=== PATIENT | female | born 1985 | race Caucasian/White ===

== ENCOUNTER 2018-02-09 10:43 | Inpatient (IN) | payer OTHER, SELFPAY ==
[2018-02-09 12:00] LABS: Troponin I 0.611 ng/mL (< 0.028)
[2018-02-09] MEDS ORDERED: ISOVUE-370 76%-LOCM 1 ML ONE (13:31)
[2018-02-09 13:38] LABS: Bilirubin Small (Negative); Blood, Urine Large (Negative); Clarity CLOUDY (Clear); Glucose, Urine (Dipstick) Negative (Negative); Leukocyte Small (Negative); Nitrite Positive (Negative); Protein, Urine (Dipstick) 100 mg/dL (Neg-Trace); Specific Gravity, Urine 1.036 (1.002-1.036)
[2018-02-09 13:40] LABS: Bacteria/HPF 4+ HPF (None Seen); Pregnancy Test - Urine (BHCG) Negative (Negative); Pregu Control Background? CLEAR/WHITE (CLR/WHITE); Pregu Control Bar Appear? YES (CONTROL BAR); Specific Gravity 1.036 (1.002-1.036)
[2018-02-09 13:42] LABS: Pathc Cast-AUWi Flag 3.25 (0-2.49); Yeast-AUWi Flag 26.2 (0-25.0)
[2018-02-09 13:49] LABS: Amphetamine Detected (NotDetected); Barbiturates Screen Not Detected (NotDetected); Benzodiazepine Screen Detected (NotDetected); Cocaine Metabolite Screen Not Detected (NotDetected); Medtox Control Line Valid? VALID (VALID); Medtox Reader # READER 4; Methadone Not Detected (NotDetected); Methamphetamine Detected (NotDetected); Opiate Screen Not Detected (NotDetected); Oxycodone Screen Not Detected (NotDetected); Phencyclidine (PCP) Not Detected (NotDetected); THC/Cannabinoid Screen Not Detected (NotDetected); Tricyclic Screen Not Detected (NotDetected)
[2018-02-09 13:51] LABS: Crystals/HPF 1+ CA OXALATE HPF (Negative); Hyaline Casts/LPF 0-3 HYALINE CAST LPF (0-3 Hyaline); Other Casts/LPF None Seen LPF (0-3 Hyaline)
[2018-02-09 13:52] LABS: Yeast-All Forms None Seen HPF (None Seen)
--- NOTE | 2018-02-09 14:29 | CT ---
CT ANGIOGRAM OF CHEST: Date: 02/09/18 HISTORY: Chest pain. COMPARISON: None. TECHNIQUE: CT angiogram of the chest is performed in the axial plane. Three-dimensional reformatted images are s ubmitted for interpretation. FINDINGS: Trachea and central bronchi are patent. No consolidation or masses. No pleural effusion. No pneumotho rax. No mediastinal mass, lymphadenopathy, or hematoma. Heart size is normal. No pericardial fluid. Visual ized aorta is grossly unremarkable. There is adequate contrast opacification of the pulmonary arterial system to the level of the segment al arteries. No filling defect to suggest thromboembolism. There is hepatic steatosis. Upper solid organs are unremarkable. There is some reflux of contrast int o the inferior vena cava. Correlate for right heart failure. No lytic or blastic lesions in the osseous structures. IMPRESSION: No evidence of pulmonary artery embolism to the level of the segmental arteries. POS: [facility] [place]
[2018-02-09 15:46] LABS: Critical Call Chem Troponin I RESULT DECREASING; Troponin I 0.531 ng/mL (< 0.028)
--- NOTE | 2018-02-09 16:13 | PDOC.FPRHP ---
- History of Present Illness Chief Complaint: chest pain History of Present Illness: 32 yo F with no prior cardiac history presents to ED with chest pain. Was a transfer from [facility] ED for elevated cardiac enzymes. Described as left substernal, sharp and squeezing, 9/10, better with rest, worse with exertion. Accompanied by SOB, nausea. Of note, for the past two week she has been experiencing this same chest pain, but less severe, triggered when shes smokes. 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 Patient also endorses episodes where she gets really warm, accompanied by palpitations and headaches that started this week. Mom had thyroid problems. ED Course: given ativan and haldol for anxiety - Allergies/Adverse Reactions Allergies Allergy/AdvReac Type Severity Reaction Status Date / Time Penicillins Allergy Verified 02/09/18 16:27 Sulfa (Sulfonamide Allergy Verified 02/09/18 16:27 Antibiotics) - Home Medications Medication Instructions Recorded Confirmed Type No Known 02/09/18 02/09/18 History - History PMHx: asthma, anxiety PSHx: C section FHx:Dad of MS at 42, DM, HTN Social: 1/2 ppd x5 years, socially drinks, denies drug use, former h/o of opiate abuse (clean 3 years). 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 denies : congestion Cardiovascular: reports: chest pain, palpitation. denies: edema, orthopnea Gastrointestinal: denies: nausea, vomiting, diarrhea, constipation, abdominal pain Genitourinary: denies: incontinence, dysuria Skin: denies: rashes, lesions, jaundice, itching Musculoskeletal: denies: pain, tenderness, stiffness, swelling Neurological: denies: numbness, syncope, seizure Psychological: reports: anxiety. denies: depression - Vital signs BP: [101/64] HR: [109] RR: [16] Tmax: [98.1] Pox: [98]% on [RA] Wt: [94] - Physical Exam Constitutional: NAD, awake, alert and oriented HEENT: normocephalic and atraumatic, PERRLA, EOMI, no scleral icterus Neck: supple, no thyromegaly Chest: no-tender to palpation, no lesions Heart: normal S1/S2 -Heart: tachycardic -Lungs: diffuse inspiratory and expiratory wheezes Abdomen: soft, non-tender Musculoskeletal: normal structure, ROM grossly normal Neurological: no focal deficit, CN II-XII intact Skin: good turgor -Skin: lower leg lesions, mild, superificial skin excoriation with no drainage or erythema Heme/Lymphatic: no unusual bruising or bleeding, no purpura Psychiatric: normal mood and affect FMR H&P: Results - Labs Lab results: Urine Ketones 40 mg/dL (Negative) H 02/09/18 13:16 Urine Blood Large (Negative) H 02/09/18 13:16 Urine Nitrite Positive (Negative) H 02/09/18 13:16 Ur Leukocyte Esterase Small (Negative) H 02/09/18 13:16 Urine RBC 7-10 HPF (0-3) H 02/09/18 13:16 Urine WBC 7-10 HPF (0-3) H 02/09/18 13:16 Ur Squamous Epith Cells 4-6 HPF (0-3) H 02/09/18 13:16 Urine Bacteria 4+ HPF (None Seen) H 02/09/18 13:16 - EKG Interpretation EKG: ST elevation in V2, t wave inversions - Radiology Interpretation CT scan - chest Status: report reviewed by me Additional comment: negative for PE FMR H&P: A/P - Problem List (1) NSTEMI (non-ST elevated myocardial infarction) Current Visit: Yes Status: Acute Code(s): I21.4 - NON-ST ELEVATION (NSTEMI) MYOCARDIAL INFARCTION (2) Rhabdomyolysis Current Visit: Yes Status: Acute Code(s): M62.82 - RHABDOMYOLYSIS (3) Methamphetamine abuse Current Visit: Yes Status: Acute Code(s): F15.10 - OTHER STIMULANT ABUSE, UNCOMPLICATED (4) UTI (urinary tract infection) Current Visit: Yes Status: Acute - Plan 32 yo F with h/o of former multi-drug abuse with NSTEMI, Rhabdomyolysis, and UTI. NSTEMI, ACS r/o -likely 2/2 to methamphetamine use -0.7 -> 0.6 -continue to trend trops -cardiology (Dr. Velez) consulted, recommended NST in am Rhabomyolysis -CK >19,000 -Bolus x1, will continue maintenance fluids at 250cc/hr -Trend CK and renal function UTI, uncomplicated -Ciprofloxacin 250mg BID for 5 days, first dose this pm -pending Ucx, tailor abx according to S/S Amphetamine abuse -positive UDS -MD aware Episodic hot flashes, palpitations, blurry vision -will r/o thyroid disease with TSH, fT3, fT4 Dispo: Continue management for NSTEMI, ACS r/o, rhabdo, UTI. Discussed with Dr. Cruz FMR H&P: Upper Level - Plan Date/Time: 02/09/18 547 I, [], have evaluated this patient and agree with findings/plan as outlined by financial intern resident. Pertinent changes/additions are listed here. Attending Addendum - Attending Addendum Date/Time: 02/09/18 4833 I personally evaluated the patient and discussed the management with Dr. Yan/ Sapna. I agree with the History, Examination, Assessment and Plan documented above with any addition or exceptions noted below. Patient here with 2 week history of chest pain that she reports has gotten worse over the last few days associated with nausea, headache, and diaphoresis. Patient denies alleviating or exacerbating factors. Regards pain as pressure and stabbing in nature. On exam, there are no major abnormalities and vitals are currently stable. Labs at outside ER showed elevation in CKMB and Troponin and so she was transferred here. UDS positive for methamphetamines and benzos[place] [address] and her UA is grossly abnormal. Patient reports stable and somewhat improved pain at this time. Patient will be admitted to telemetry for NSTEMI. Administer therepeutic lovenox and obtain cardiology consult. Further recs per cardiology. Counselling regarding drug use. She will be started on high rate IVF for possible rhabdomyolysis and trend CK. Troponins are currently downtrending. Trend renal labs as needed. Anticipate this is likely all secondary to illicit drug use.
[2018-02-09] MEDS ORDERED: Nitroglycerin 0.4 MG TAB (25 Tab Bottle) PO PRN (16:23)
[2018-02-09] MEDS ORDERED: Ondansetron ODT 4 MG TAB PO PRN (16:23)
[2018-02-09] MEDS ORDERED: Acetaminophen 325 MG TAB PO PRN (16:23)
[2018-02-09] MEDS ORDERED: Enoxaparin Sodium 40 MG/0.4 ML SYRINGE SC SCH (16:23)
[2018-02-09] MEDS ORDERED: Carvedilol 3.125 MG TAB PO SCH (17:00)
[2018-02-09 17:30] LABS: Free T4 (Free Thyroxine) 1.41 ng/dL (0.70-1.48); Thyroid Stimulating Hormone 3.3459 uIU/mL (0.35-4.94)
[2018-02-09 17:51] VITALS: BMI 32.7
[2018-02-09] MEDS ORDERED: Cipro 250 MG TAB PO SCH ×2 (18:00→20:00)
[2018-02-09] MEDS ORDERED: Lactated Ringer's 1,000 ML IV SCH (18:00)
[2018-02-09 19:08] LABS: Critical Call Chem Troponin I RESULT DECREASING; Troponin I 0.455 ng/mL (< 0.028)
[2018-02-09] MEDS: Lactated Ringer's 1,000 ML IV SCH (19:35)
[2018-02-09] MEDS: Cipro 250 MG TAB PO SCH (21:14)
[2018-02-09] MEDS: Nitroglycerin 2% Ointment 1 INCH/1 GM Packet TOP SCH (21:14)
[2018-02-09] MEDS: Enoxaparin Sodium 120 MG/0.8 ML SYRINGE SC SCH (21:14)
[2018-02-09] MEDS: traMADol HCl 50 MG TAB PO PRN (21:14)
[2018-02-09 21:16] LABS: Critical Call Chem Troponin I RESULT DECREASING; Troponin I 0.385 ng/mL (< 0.028)
[2018-02-10] MEDS: Lactated Ringer's 1,000 ML IV SCH ×7 (00:18→23:14)
--- NOTE | 2018-02-10 05:07 | PDOC.FM ---
- Subjective Subjective: Pt feeling well this AM, continued mild constant cp at rest, pt reports pain is exacerbated by pushing on chest. no SOB. no other complaints. ROS: no fevers/chills, cp no palpitations, no sob no cough, no nausea/vomiting - Objective MAR Reviewed: Yes Vital Signs & Weight: Vital Signs (12 hours) Temp Pulse Resp BP Pulse Ox 02/10/18 00:00 98.2 F 114 H 20 92/52 L 94 L 02/09/18 19:55 97.6 F 109 H 18 Weight Weight 94.801 kg Result Diagrams: 02/10/18 04:26 02/10/18 04:26 <Rene Addison - Last Filed: 02/10/18 07:38> - Objective Vital Signs & Weight: Vital Signs (12 hours) Temp Pulse Resp BP Pulse Ox 02/10/18 07:38 98.3 F 121 H 12 128/81 92 L 02/10/18 04:00 97.7 F 108 H 17 108/60 93 L 02/10/18 00:00 98.2 F 114 H 20 92/52 L 94 L Weight Weight 96.887 kg I&O: 02/09/18 02/10/18 02/11/18 06:59 06:59 06:59 Intake Total 2600 Output Total 200 Balance 2400 Result Diagrams: 02/10/18 04:26 02/10/18 04:26 <Royce Cruz - Last Filed: 02/10/18 10:46> Phys Exam - Physical Examination Constitutional: NAD HEENT: moist MMs, sclera anicteric Respiratory: no wheezing, clear to auscultation bilateral Cardiovascular: no significant murmur tachycardic, regular rhythm cp reproducible on palpation of L anterior chest wall. Gastrointestinal: soft, non-tender Musculoskeletal: no edema, pulses present Neurological: moves all 4 limbs Psychiatric: normal affect Skin: no rash, normal turgor <Rene Addison - Last Filed: 02/10/18 07:38> Dx/Plan (1) NSTEMI (non-ST elevated myocardial infarction) Code(s): I21.4 - NON-ST ELEVATION (NSTEMI) MYOCARDIAL INFARCTION Status: Acute (2) Rhabdomyolysis Code(s): M62.82 - RHABDOMYOLYSIS Status: Acute (3) Methamphetamine abuse Code(s): F15.10 - OTHER STIMULANT ABUSE, UNCOMPLICATED Status: Acute (4) UTI (urinary tract infection) Status: Acute - Plan Plan: 32 yo F with h/o of former multi-drug abuse with NSTEMI, Rhabdomyolysis, and UTI. NSTEMI, ACS r/o A- likely 2/2 to methamphetamine use. troponins 0.7 -> 0.6 -> 0.385 P- stress test this AM per cardiology consult (Dr. Velez) recs Rhabomyolysis A- CK 11,000 down from 19,000. Bolus x1 P- will continue maintenance fluids at 250cc/hr - trend CK and renal function UTI, uncomplicated -Ciprofloxacin 250mg BID for 5 days, started 02/09 -pending Ucx, tailor abx according to S/S Amphetamine abuse -positive UDS -MD aware Episodic hot flashes, palpitations, blurry vision -TSH normal, likely due to drug abuse Dispo: Continue management for NSTEMI, ACS r/o, rhabdo, UTI. <Rene Addison - Last Filed: 02/10/18 07:38> Attending Addendum - Attending Addendum Date/Time: 02/10/18 1044 I personally evaluated the patient and discussed the management with Dr. Addison. I agree with the History, Examination, Assessment and Plan documented above with any addition or exceptions noted below. Patient feeling improved. Stress testing and th. lovenox per Cardiology. CK downtrending and continue aggressive hydration and recheck tomorrow. Will check another UA to evaluate for myoglobinuria. <Royce Cruz - Last Filed: 02/10/18 10:46>
[2018-02-10 05:16] LABS: #Basophils 0.1 thou/uL (0.0-0.2); #Eosinphils 0.3 thou/uL (0.0-0.7); #Lymphocytes 2.1 thou/uL (1.20-3.40); #Monocytes 0.6 thou/uL (0.11-0.59); #Neutrophils 5.8 thou/uL (1.40-6.50); %Basophils 0.8 % (0.0-1.0); %Eosinophils 3.7 % (0.0-10.0); %Lymphocytes 23.3 % (21.0-51.0); %Monocytes 6.2 % (0.0-10.0); %Neutrophils 65.8 % (42.0-75.0); Hemoglobin 13.9 g/dL (12.0-16.0); Mean Corpuscular HGB CONC 35.7 g/dL (32.0-36.0); Mean Corpuscular Hemoglobin 36.2 pg (27.0-31.0); Mean Platelet Volume 8.9 fL (7.4-10.4); Platelet Count 199 thou/uL (130-400); RBC Distribution Width 14.1 % (11.5-14.5); Red Blood Cell (RBC) Count 3.85 mill/uL (4.20-5.40); White Blood Cell (WBC) Count 8.8 thou/uL (4.8-10.8)
[2018-02-10 05:28] LABS: Cardiac Risk 3.4 (Less than 4.5)
[2018-02-10 05:37] LABS: ALT (SGPT) 155 U/L (8-55); AST (SGOT) 244 U/L (5-34); Albumin 3.1 g/dL (3.5-5.0); Alkaline Phosphatase 82 U/L (40-150); Anion Gap 15 mmol/L (10-20); BUN (Urea Nitrogen) 13 mg/dL (7.0-18.7); Calc. Creatinine Clearance 171 mL/min (70-130); Calcium 8.5 mg/dL (7.8-10.44); Carbon Dioxide 21 mmol/L (22-29); Chloride 104 mmol/L (98-107); Estimated GFR-MDRD Greater than 90; Globulin 2.4 g/dL (2.4-3.5); Glucose 90 mg/dL (70-105); Potassium 3.3 mmol/L (3.5-5.1); Protein, Total 5.5 g/dL (6.0-8.3); Sodium 137 mmol/L (136-145)
[2018-02-10] MEDS: Cipro 250 MG TAB PO SCH ×2 (05:53→21:07)
[2018-02-10] MEDS: Nitroglycerin 2% Ointment 1 INCH/1 GM Packet TOP SCH ×3 (05:56→21:08)
[2018-02-10 06:03] LABS: CK (CPK) 11325 U/L (29-168)
[2018-02-10] MEDS: traMADol HCl 50 MG TAB PO PRN ×3 (10:02→23:43)
[2018-02-10] MEDS: Aspirin 325 MG TAB PO SCH (10:03)
[2018-02-10] MEDS: Enoxaparin Sodium 120 MG/0.8 ML SYRINGE SC SCH ×2 (10:03→21:07)
[2018-02-10 12:52] LABS: Bilirubin Moderate (Negative); Blood, Urine Negative (Negative); Clarity TURBID (Clear); Glucose, Urine (Dipstick) Negative (Negative); Leukocyte Moderate (Negative); Nitrite Positive (Negative); Protein, Urine (Dipstick) 30 mg/dL (Neg-Trace); Specific Gravity, Urine 1.035 (1.002-1.036)
[2018-02-10 12:58] LABS: Bacteria/HPF 1+ HPF (None Seen)
[2018-02-10 13:04] LABS: Pathc Cast-AUWi Flag 3.05 (0-2.49)
[2018-02-10 13:19] LABS: Crystals/HPF 1+ TRIPLE PHOS HPF (Negative); Hyaline Casts/LPF 0-3 HYALINE CAST LPF (0-3 Hyaline); Other Casts/LPF None Seen LPF (0-3 Hyaline); RBC/HPF 0-3 HPF (0-3)
[2018-02-10] MEDS ORDERED: Potassium Chloride 20 MEQ TAB PO SCH (14:15)
--- NOTE | 2018-02-10 15:11 | CON ---
DATE OF CONSULTATION: 02/10/2018 HISTORY: Annie Ren is a 32-year-old white female, who went to the emergency room in [place] for chest discomfort and was found to have abnormal cardiac enzymes and transferred here for further evaluation. She states that she has had a discomfort on the left side of her chest for the last 2 weeks. The pain has been continuous and has never resolved. She describes the pain as pressure, tightness, burning, and sharp pain. Pain is worse if she coughs or takes in a deep breath. She denies any trauma or falls. 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 She denies any muscle trauma. PAST MEDICAL HISTORY: No history of hypertension, diabetes, hypercholesterolemia. She has a history of anxiety as well as history of opioid addiction, which she states she has been off for 3 years. MEDICATIONS: None. ALLERGIES: PENICILLIN and SULFA. SOCIAL HISTORY: She smokes [id number] per day. She occasionally drinks alcohol. She denies any drug use, but urine drug screen is positive. FAMILY HISTORY: Father of myocardial infarction at age 42. REVIEW OF SYSTEMS: A 12-point review of systems, otherwise, unremarkable. PHYSICAL EXAMINATION: VITAL SIGNS: Blood pressure 108/60, pulse of 108. HEENT: PERRL. NECK: Supple. LUNGS: Reveals occasional expiratory wheezing. CARDIAC EXAMINATION: S1 and S2 are normal, without any S3, S4, or murmurs. Carotid upstroke is normal without bruits. ABDOMEN: Normal bowel sounds, without tenderness or organomegaly. EXTREMITIES: Reveal no clubbing, cyanosis, or edema. NEUROLOGIC: Grossly intact. SKIN: Warm and dry. MUSCULOSKELETAL EXAMINATION: Revealed exquisite left-sided chest wall pain to palpation that reproduces her symptoms. LABORATORY DATA: EKG reveals sinus tachycardia with poor R-wave progression in V1-V2, nonspecific T-wave abnormality. Hemoglobin 13.9, hematocrit 39.1, white count 8800, platelet count 199,000. She has high RBC indices. Sodium 137, potassium 3.3, chloride 104, carbon dioxide 21, BUN 13, creatinine 0.70, AST 244 , ALT 155. CK 19,888, CK-MB 29. Troponin I is up to 0.455 and 0.531. TSH and T4 are normal. Free T3 is elevated at 3.75, which is just over the normal range. Urine drug screen revealed amphetamines, methamphetamines, and benzodiazepines. IMPRESSION: 1. Chest wall pain, continuous for 2 weeks with palpable tenderness, pleuritic pain. 2. Rhabdomyolysis of unknown etiology. She does work in a very hot environment. She denies any trauma or falls. 3. Smoker. 4. Obesity. 5. Positive urine drug screen for methamphetamines, amphetamines, and benzodiazepines. She apparently has history of opioid addiction, states she has not used that for 3 years 6. Elevated Troponin. PLAN: Ms. Ren's current chest discomfort is chest wall pain and does not appear to be cardiac in nature. She has evidence of rhabdomyolysis and I feel that is why she has slight abnormality in her troponin I. She will undergo Lexiscan Cardiolite testing to rule out significant ischemic disease. Also, echocardiogram will be performed to assess left ventricular function. Further evaluation should be performed for her rhabdomyolysis, as to the etiology. SID
[2018-02-10] MEDS ORDERED: Nitrofurantoin Monohyd/M-Cryst 100 MG CAP PO SCH (21:00)
[2018-02-11 04:33] LABS: Actual Bicarbonate (HCO3a) 20.2 mEq/L (22-28); Base Excess (BEa) -2.3 mEq/L (-2.0 to +3.0); CO2 Tension 28.9 mmHg (35.0-45.0); O2 Tension (PaO2) 62.2 mmHg (80.0-100.0); pH, Arterial 7.46 (7.35-7.45)
[2018-02-11 04:34] LABS: ALV-art Gradient 258.175 (0-20); Analyzer IN Cardio OR; Calcium, Ionized 1.1 mmol/L (1.12-1.30); Carboxyhemoglobin (COHb) 0.3 gm% (0.0-3.0); Puncture Site RRA
[2018-02-11 05:32] LABS: ALT (SGPT) 218 U/L (8-55); AST (SGOT) 259 U/L (5-34); Albumin 3.2 g/dL (3.5-5.0); Alkaline Phosphatase 102 U/L (40-150); Anion Gap 12 mmol/L (10-20); BUN (Urea Nitrogen) 7 mg/dL (7.0-18.7); Bilirubin, Total 1.1 mg/dL (0.2-1.2); Calc. Creatinine Clearance 172 mL/min (70-130); Calcium 8.6 mg/dL (7.8-10.44); Carbon Dioxide 24 mmol/L (22-29); Chloride 102 mmol/L (98-107); Estimated GFR-MDRD Greater than 90; Globulin 2.9 g/dL (2.4-3.5); Glucose 98 mg/dL (70-105); Potassium 4.2 mmol/L (3.5-5.1); Protein, Total 6.1 g/dL (6.0-8.3); Sodium 134 mmol/L (136-145)
[2018-02-11] MEDS: Nitroglycerin 2% Ointment 1 INCH/1 GM Packet TOP SCH ×3 (05:50→22:51)
[2018-02-11] MEDS: Lactated Ringer's 1,000 ML IV SCH (05:52)
[2018-02-11 06:12] LABS: Band 1 % (5-11); Eosinophils 1 % (0-10); Lymphocytes 37 % (21-51); MDiff Complete? YES; Macrocytosis SLIGHT = 6-15 cells (100X) (0-5/hpf); Mean Corpuscular HGB CONC 35.6 g/dL (32.0-36.0); Mean Corpuscular Hemoglobin 36.8 pg (27.0-31.0); Mean Platelet Volume 8.9 fL (7.4-10.4); Monocytes 8 % (0-10); Neutrophil 53 % (42-75); PLT Morphology Comment Appears Adequate; Platelet Count 195 thou/uL (130-400); RBC Distribution Width 14.3 % (11.5-14.5); White Blood Cell (WBC) Count 7.4 thou/uL (4.8-10.8)
--- NOTE | 2018-02-11 06:49 | PDOC.FM ---
- Subjective Subjective: Pt feeling better after volume overload event last night, on 15L O2. Reports persisting and unchanged cp exacerbated by cough. ROS: no fevers/chills, cp no palpitations, no sob on 15L O2, no nausea no vomiting - Objective MAR Reviewed: Yes Vital Signs & Weight: Vital Signs (12 hours) Temp Pulse Resp BP Pulse Ox 02/11/18 03:52 92 L 02/11/18 03:46 101 H 22 H 92 L 02/11/18 03:00 106 H 18 135/86 80 L 02/11/18 02:57 106 H 18 135/86 80 L 02/11/18 00:00 97.9 F 105 H 18 130/89 95 02/10/18 21:00 98.4 F 101 H 16 159/84 H Weight Weight 102.257 kg I&O: 02/09/18 02/10/18 02/11/18 06:59 06:59 06:59 Intake Total 2600 240 Output Total 200 Balance 2400 240 Result Diagrams: 02/11/18 04:28 02/11/18 04:28 <Rene Addison - Last Filed: 02/11/18 10:05> - Objective Vital Signs & Weight: Vital Signs (12 hours) Temp Pulse Resp BP Pulse Ox 02/11/18 03:52 92 L 02/11/18 03:46 101 H 22 H 92 L 02/11/18 03:00 106 H 18 135/86 80 L 02/11/18 02:57 106 H 18 135/86 80 L 02/11/18 00:00 97.9 F 105 H 18 130/89 95 Weight Weight 102.257 kg I&O: 02/10/18 02/11/18 02/12/18 06:59 06:59 06:59 Intake Total 2600 240 Output Total 200 Balance 2400 240 Result Diagrams: 02/11/18 04:28 02/11/18 04:28 <Royce Cruz - Last Filed: 02/11/18 10:58> Phys Exam - Physical Examination Constitutional: NAD HEENT: moist MMs, sclera anicteric bilateral expiratory wheezing at the lung bases Cardiovascular: no significant murmur tachycardia, regular rhythm Gastrointestinal: soft, non-tender Musculoskeletal: pulses present Neurological: moves all 4 limbs Psychiatric: normal affect Skin: no rash, normal turgor <Rene Addison - Last Filed: 02/11/18 10:05> Dx/Plan (1) NSTEMI (non-ST elevated myocardial infarction) Code(s): I21.4 - NON-ST ELEVATION (NSTEMI) MYOCARDIAL INFARCTION Status: Acute (2) Rhabdomyolysis Code(s): M62.82 - RHABDOMYOLYSIS Status: Acute (3) Methamphetamine abuse Code(s): F15.10 - OTHER STIMULANT ABUSE, UNCOMPLICATED Status: Acute (4) UTI (urinary tract infection) Status: Acute - Plan Plan: 32 yo F with h/o of former multi-drug abuse with NSTEMI, Rhabdomyolysis, and UTI. Volume Overload A- Pt satting well on 15L O2 but reports feeling much better, has had 60mg lasix P- wean O2 as tolerated -Once pt is weaned to nasal canula restart slow fluids -will consider additional lasix depending on respiratory status NSTEMI, ACS r/o A- likely 2/2 to methamphetamine use. troponins 0.7 -> 0.6 -> 0.385, cardiology consulted (Dr. Velez) P- finish 2 day stress test today Rhabomyolysis A- CK 7,500 and downtrending. P- restart slow fluids when pt is weaned down to nasal canula - trend CK and renal function UTI, uncomplicated - UCx showed E. Coli -Ciprofloxacin 250mg BID for 5 days, started 02/09 -tailor abx according to S/S Amphetamine abuse -positive UDS -MD aware Episodic hot flashes, palpitations, blurry vision -TSH normal, likely due to drug abuse <Rene Addison - Last Filed: 02/11/18 10:05> Attending Addendum - Attending Addendum Date/Time: 02/11/18 9685 I personally evaluated the patient and discussed the management with Dr. Addison. I agree with the History, Examination, Assessment and Plan documented above with any addition or exceptions noted below. Patient doing better currently. Please see event note for major details. She is currently feeling better s/p Lasix dosing. Holding on stress testing until tomorrow. May need repeat Lasix dose. Anticipate this fluid overload was due to high fluid rate involved in the appropriate treatment of her rhabdo. Awaiting echo report and further cardiology recs. <Royce Cruz R - Last Filed: 02/11/18 10:58>
[2018-02-11] MEDS ORDERED: Furosemide 40 MG/4 ML VIAL ONE (06:56)
--- NOTE | 2018-02-11 07:23 | PDOC.EVN ---
Event Note - Event Note Event Note: Residents to bedside at approximately 0645 after chart review revealed acute event of CP overnight. Residents were not notified of event. 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 At sometime between 0300 and 0400, pt complained of chest pain, SOB, and was found to be hypoxic with oxygen saturation of 80% on RA. RT evaluated pt and recommended nebulizer treatment, ABG, CXR, oxygen via ventimask and to discontinue fluids. Pt was given morphine and nitroglycerin SL and per nurse started feeling better. Again, residents were never notified of events. On entering pt's room, pt was asleep in bed without supplemental oxygen on. No nursing at bedside. She states she feels somewhat better but still endorses SOB , SINCLAIR, and orthopnea. Bedside O2 monitor was not functioning. Portable O2 sat obtained and used which revealed oxygen saturation of 74% on RA. Pt was also tachycardic with HR 120-140. Auscultation revealed bibasilar crackles. Charge nurse and attending physician notified immediately. CXR reviewed which shows pulmonary congestion and blunting of costophrenic angles BL. Ventimask was placed back on and O2 slowly improved to 91%. Lasix 40 mg IVP ordered stat. Pt placed in upright position and respiratory effort visibly improved. Will place pt on strict bed rest at this time and continue to monitor closely.
[2018-02-11] MEDS: Cipro 250 MG TAB PO SCH ×2 (07:45→20:24)
[2018-02-11] MEDS: Enoxaparin Sodium 120 MG/0.8 ML SYRINGE SC SCH (09:11)
[2018-02-11] MEDS: Aspirin 325 MG TAB PO SCH (09:11)
[2018-02-11] MEDS: traMADol HCl 50 MG TAB PO PRN ×3 (09:15→18:13)
--- NOTE | 2018-02-11 09:29 | RAD ---
PORTABLE CHEST: HISTORY: Chest pain. FINDINGS: Interstitial markings are increased bilaterally. No confluent consolidation. I cannot exclude small effusions. Cardiomediastinum unremarkable. IMPRESSION: Increased interstitium of uncertain significance. Suggest followup PA and lateral views of chest. POS: [facility]
[2018-02-11] MEDS ORDERED: Furosemide 20 MG TAB PO SCH (10:00)
[2018-02-11] MEDS ORDERED: Furosemide 40 MG/4 ML VIAL SLOW IVP SCH (10:00)
[2018-02-11] MEDS ORDERED: Carvedilol 3.125 MG TAB PO SCH (10:00)
[2018-02-11] MEDS ORDERED: Communication Order-Pharmacy FS SCH (10:15)
--- NOTE | 2018-02-11 14:40 | NM ---
REST ONLY CARDIAC SPECT STUDY: HISTORY: A 32-year-old female with non-ST elevation and a myocardial infarction. TECHNIQUE: A rest-only myocardial perfusion scan was performed following the intravenous administration of 30 mC i Technetium 99m sestamibi. FINDINGS: There is a moderate-sized defect in the anterior wall. IMPRESSION: Findings consistent with an anterior wall scar. POS: [facility]
[2018-02-11] MEDS: Carvedilol 3.125 MG TAB PO SCH (18:13)
--- NOTE | 2018-02-11 19:02 | PDOC.EVN ---
Event Note - Event Note Event Note: Per nursing, there is a written note by Dr. Velez in the patient's chart documenting EF of 15-20%. <Barbie Castrejon - Last Filed: 02/11/18 19:02> - Event Note Event Note: The clinical information obtained from the echocardiogram was not documented in the patients chart until after the time of her decompensation. She had no previous history of heart failure of any subtype, and had no symptoms of heart failure prior to her admission. Dr. Vleez's note from the previous day documented that he felt her presentation was more consistent with rhabdomyolysis and there was no suspicion of heart failure at that time. After her decompensation, the echo report was posted that showed a new onset heart failure. <Royce Cruz - Last Filed: 02/15/18 13:26>
[2018-02-12 05:27] LABS: #Basophils 0.1 thou/uL (0.0-0.2); #Eosinphils 0.3 thou/uL (0.0-0.7); #Lymphocytes 1.9 thou/uL (1.20-3.40); #Neutrophils 5.1 thou/uL (1.40-6.50); %Eosinophils 3.9 % (0.0-10.0); %Lymphocytes 22.6 % (21.0-51.0); %Monocytes 11.7 % (0.0-10.0); %Neutrophils 60.9 % (42.0-75.0); Hemoglobin 14.2 g/dL (12.0-16.0); Mean Corpuscular HGB CONC 35.5 g/dL (32.0-36.0); Mean Corpuscular Hemoglobin 36.7 pg (27.0-31.0); Platelet Count 184 thou/uL (130-400); RBC Distribution Width 14.5 % (11.5-14.5); Red Blood Cell (RBC) Count 3.87 mill/uL (4.20-5.40); White Blood Cell (WBC) Count 8.4 thou/uL (4.8-10.8)
[2018-02-12 05:37] LABS: ALT (SGPT) 169 U/L (8-55); AST (SGOT) 151 U/L (5-34); Albumin 3.2 g/dL (3.5-5.0); Alkaline Phosphatase 99 U/L (40-150); Anion Gap 15 mmol/L (10-20); BUN (Urea Nitrogen) 9 mg/dL (7.0-18.7); Bilirubin, Total 0.7 mg/dL (0.2-1.2); CK (CPK) 3259 U/L (29-168); Calc. Creatinine Clearance 182 mL/min (70-130); Carbon Dioxide 26 mmol/L (22-29); Chloride 98 mmol/L (98-107); Estimated GFR-MDRD Greater than 90; Globulin 2.8 g/dL (2.4-3.5); Glucose 89 mg/dL (70-105); Potassium 3.6 mmol/L (3.5-5.1); Sodium 135 mmol/L (136-145)
--- NOTE | 2018-02-12 05:59 | PDOC.FM ---
- Subjective Subjective: Pt feeling well, no SOB on mask 13L O2. CP is resolving in severety but unchanged in character, constant mild, and exacerbated by movement and cough. ROS: no fevers/chills, cp no palpitations, cough no sob, no nausea/vomiting - Objective MAR Reviewed: Yes Vital Signs & Weight: Vital Signs (12 hours) Temp Pulse Resp BP Pulse Ox 02/12/18 03:28 97.4 F L 83 16 94/51 L 94 L 02/12/18 00:00 97.7 F 83 25 H 97/69 94 L 02/11/18 19:40 97.7 F 89 18 92 L 02/11/18 19:36 97.7 F 89 18 97/62 92 L Weight Weight 102.257 kg I&O: 02/10/18 02/11/18 02/12/18 06:59 06:59 06:59 Intake Total 2600 240 240 Output Total 200 3750 Balance 2400 240 -3510 Result Diagrams: 02/12/18 04:43 02/12/18 04:43 Phys Exam - Physical Examination Constitutional: NAD HEENT: moist MMs, sclera anicteric Respiratory: no rales bilateral mild expiratory wheezing at the lung bases Cardiovascular: RRR, no significant murmur Gastrointestinal: soft, non-tender Musculoskeletal: no edema, pulses present Neurological: moves all 4 limbs Psychiatric: normal affect Skin: no rash, normal turgor Dx/Plan (1) NSTEMI (non-ST elevated myocardial infarction) Code(s): I21.4 - NON-ST ELEVATION (NSTEMI) MYOCARDIAL INFARCTION Status: Acute (2) Rhabdomyolysis Code(s): M62.82 - RHABDOMYOLYSIS Status: Acute (3) Methamphetamine abuse Code(s): F15.10 - OTHER STIMULANT ABUSE, UNCOMPLICATED Status: Acute (4) UTI (urinary tract infection) Status: Acute - Plan Plan: 32 yo F with h/o of former multi-drug abuse with NSTEMI, Rhabdomyolysis, and UTI. Volume Overload A- Pt satting well on 13L O2 but reports feeling much better, lasix started by Agustin P- wean O2 as tolerated -pt on slow fluids (50ml/hr) NSTEMI, ACS r/o A- likely 2/2 to methamphetamine use. troponins 0.7 -> 0.6 -> 0.385, cardiology consulted (Dr. Velez) P- Echo results pending -await cards recs for completion of 2 day stress test Rhabomyolysis A- CK 3,200 and downtrending. P- IVF 50ml/hr - trend CK and renal function UTI, uncomplicated - UCx showed E. Coli, sensitive to cipro -Ciprofloxacin 250mg BID for 5 days, started 02/09 Amphetamine abuse -positive UDS -MD aware Episodic hot flashes, palpitations, blurry vision -TSH normal, likely due to drug abuse
[2018-02-12] MEDS: Sodium Chloride 0.9% 1,000 ML IV SCH ×2 (06:20→06:21)
[2018-02-12] MEDS: Nitroglycerin 2% Ointment 1 INCH/1 GM Packet TOP SCH ×3 (06:23→21:52)
[2018-02-12] MEDS: Carvedilol 3.125 MG TAB PO SCH ×2 (06:25→17:15)
[2018-02-12] MEDS: Cipro 250 MG TAB PO SCH ×2 (06:25→21:51)
[2018-02-12] MEDS: Furosemide 20 MG TAB PO SCH (06:25)
[2018-02-12] MEDS ORDERED: Heparin 1000 UNIT/NS 500ML(OR) 1,000 ML ONE (06:41)
[2018-02-12] MEDS ORDERED: Heparin 10,000 UNITS/1 ML VIAL ONE (06:47)
[2018-02-12] MEDS ORDERED: Midazolam HCl 2 mg/2 ml Vial ONE (08:24)
[2018-02-12] MEDS ORDERED: Fentanyl 100 MCG/2 ML VIAL ONE (08:24)
[2018-02-12] MEDS ORDERED: Iopamidol 370 76% 50 ML VIAL FS ONE (08:42)
[2018-02-12] MEDS ORDERED: Iopamidol 370 76% 100 ML VIAL ONE (08:42)
[2018-02-12] MEDS ORDERED: Protamine Sulfate 50 MG/5 ML VIAL ONE (08:54)
[2018-02-12] MEDS ORDERED: traMADol HCl 50 MG TAB PO PRN (08:55)
[2018-02-12] MEDS ORDERED: Acetaminophen/Codeine 30-300mg Tablet PO PRN ×2 (08:55)
[2018-02-12] MEDS ORDERED: Nitroglycerin 0.4 MG TAB (25 Tab Bottle) SL PRN (08:55)
[2018-02-12] MEDS ORDERED: Sodium Chloride 0.9% 1,000 ML IV SCH (08:57)
[2018-02-12] MEDS ORDERED: Sodium Chloride 0.9% 200 ML IV PRN (09:00)
[2018-02-12] MEDS: Aspirin 325 MG TAB PO SCH (10:02)
[2018-02-12 15:24] LABS: Syphilis Antibody Nonreactive (Nonreactive); Syphilis Antibody Index 0.03 S/CO (<1.00 Non-Reactive)
[2018-02-12 15:25] LABS: HIV (1/2) Antibody/Antigen Non-Reactive (NonReactive); HIV 1/2 INDEX 0.15 S/CO (<1.00); Hep C IgG Ab Non-Reactive (NonReactive); Hep C Index 0.07 S/CO (0-0.79)
--- NOTE | 2018-02-12 15:50 | ADD-PRG ---
DATE OF SERVICE: 02/12/2018 This is an addendum to the note of Dr. Rene Addison. Ms. Ren has just returned from a cardiac catheterization. We still do not have an official repor t, but the patient tells us that her coronary arteries were clear, but that she did have an EF of onl y 15%. In further history taking, she had a very severe emotional trauma approximately 2 weeks ago w hich is when her symptoms started. Cardiology feels she has Takotsubo's cardiomyopathy. In the even t, her CBC is normal with a white count of 8400, hemoglobin 14.2, her hematocrit is 40. Her MCV is e levated at 104. She was initially admitted with a significant elevation of her CPK to 19,882. We lu ve been vigorously fluid resuscitated her. She also had cardiac enzymes consistent with an NSTEMI, b ut this has been demonstrated to be probable Takotsubo. Her urine drug screen was positive for amphe tamines, methamphetamines and benzos. This likely played somewhat of a role in her symptomatology, a lthough it appears to be mostly due to Takotsubo's given her recent emotional trauma.
[2018-02-12] MEDS: Simvastatin 20 MG TAB PO SCH (21:51)
[2018-02-13 05:34] LABS: #Eosinphils 0.2 thou/uL (0.0-0.7); #Lymphocytes 1.9 thou/uL (1.20-3.40); %Basophils 0.5 % (0.0-1.0); %Eosinophils 2.7 % (0.0-10.0); %Monocytes 12.5 % (0.0-10.0); %Neutrophils 61.4 % (42.0-75.0); Hemoglobin 14.2 g/dL (12.0-16.0); Mean Corpuscular HGB CONC 33.2 g/dL (32.0-36.0); Mean Corpuscular Hemoglobin 34.4 pg (27.0-31.0); Mean Platelet Volume 9.1 fL (7.4-10.4); Platelet Count 210 thou/uL (130-400); RBC Distribution Width 14.5 % (11.5-14.5); Red Blood Cell (RBC) Count 4.11 mill/uL (4.20-5.40); White Blood Cell (WBC) Count 8.2 thou/uL (4.8-10.8)
[2018-02-13 05:49] LABS: ALT (SGPT) 156 U/L (8-55); AST (SGOT) 112 U/L (5-34); Albumin 3.2 g/dL (3.5-5.0); Alkaline Phosphatase 94 U/L (40-150); Anion Gap 15 mmol/L (10-20); BUN (Urea Nitrogen) 8 mg/dL (7.0-18.7); Bilirubin, Total 0.5 mg/dL (0.2-1.2); CK (CPK) 1197 U/L (29-168); Calc. Creatinine Clearance 172 mL/min (70-130); Carbon Dioxide 22 mmol/L (22-29); Chloride 104 mmol/L (98-107); Estimated GFR-MDRD Greater than 90; Glucose 87 mg/dL (70-105); Potassium 3.8 mmol/L (3.5-5.1); Protein, Total 6.2 g/dL (6.0-8.3); Sodium 137 mmol/L (136-145)
[2018-02-13 05:53] LABS: ALT (SGPT) 151 U/L (8-55); AST (SGOT) 111 U/L (5-34); Albumin 3.2 g/dL (3.5-5.0); Alkaline Phosphatase 100 U/L (40-150); Bilirubin, Direct 0.2 mg/dL (0.1-0.3); Bilirubin, Total 0.5 mg/dL (0.2-1.2); Protein, Total 6.1 g/dL (6.0-8.3)
--- NOTE | 2018-02-13 06:17 | PDOC.FM ---
- Subjective Subjective: Pt doing well on RA all night, pt was able to lay flat and sleep with no SOB last night. Reports continued improvement of CP and has ambitions to never do meth again. Pt reports feeling much better over all. ros: no fevers/chills, cp no palpitations, no sob no cough, no n/v - Objective MAR Reviewed: Yes Vital Signs & Weight: Vital Signs (12 hours) Temp Pulse Resp BP Pulse Ox 02/13/18 03:18 98 F 97 19 115/56 L 97 02/13/18 00:00 18 02/12/18 20:00 96.7 F L 96 20 107/65 95 Weight Weight 95.3 kg I&O: 02/11/18 02/12/18 02/13/18 06:59 06:59 06:59 Intake Total 239 072 2707 Output Total 3750 1500 Balance 240 -3510 550 Result Diagrams: 02/13/18 04:43 02/13/18 04:43 Phys Exam - Physical Examination Constitutional: NAD HEENT: moist MMs, sclera anicteric Respiratory: no wheezing, clear to auscultation bilateral Cardiovascular: RRR, no significant murmur Gastrointestinal: soft, non-tender Musculoskeletal: no edema Neurological: moves all 4 limbs Psychiatric: normal affect Skin: no rash, normal turgor Dx/Plan (1) NSTEMI (non-ST elevated myocardial infarction) Code(s): I21.4 - NON-ST ELEVATION (NSTEMI) MYOCARDIAL INFARCTION Status: Acute (2) Rhabdomyolysis Code(s): M62.82 - RHABDOMYOLYSIS Status: Acute (3) Methamphetamine abuse Code(s): F15.10 - OTHER STIMULANT ABUSE, UNCOMPLICATED Status: Acute (4) UTI (urinary tract infection) Status: Acute - Plan Plan: 32 yo F with h/o of former multi-drug abuse with NSTEMI, Rhabdomyolysis, and UTI. Volume Overload -resolving. Pt satting well on RA and reports feeling much better, lasix continued by Agustin NSTEMI, Takotsubo Cardiomyopathy A- likely 2/2 to methamphetamine use. troponins 0.7 -> 0.6 -> 0.385, cardiology consulted (Dr. Velez), Cath negative, Takotsubo cardiomyopathy dx. P- Send home with life vest and Cards recommended meds: coreg and lasix Rhabomyolysis A- CK 1197 and downtrending. P- PO hydration UTI, uncomplicated - UCx showed E. Coli, sensitive to cipro -Ciprofloxacin 250mg BID for 5 days, started 02/09 Amphetamine abuse -positive UDS -MD aware Episodic hot flashes, palpitations, blurry vision -TSH normal, likely due to drug abuse
[2018-02-13] MEDS: Cipro 250 MG TAB PO SCH ×2 (06:50→21:00)
[2018-02-13] MEDS: Nitroglycerin 2% Ointment 1 INCH/1 GM Packet TOP SCH ×2 (07:34→13:23)
[2018-02-13] MEDS: Furosemide 20 MG TAB PO SCH (09:11)
[2018-02-13] MEDS: Aspirin 81 mg Enteric Coated Tablet PO SCH (09:11)
[2018-02-13] MEDS: Carvedilol 3.125 MG TAB PO SCH ×2 (09:11→18:09)
--- NOTE | 2018-02-13 12:35 | HP ---
DATE OF SERVICE: 02/13/2018 Ms. Ren is resting quietly in bed. She is in no acute distress. She would be continued on Coreg and Lasix for her Takotsubo cardiomyopathy with reduced ejection fraction. She will follow up with our clinic and the chemical laboratory technician as she will need a repeat echo in 4-6 weeks.
--- NOTE | 2018-02-13 17:01 | ULT ---
ULTRASOUND GALLBLADDER RIGHT UPPER QUADRANT 02/13/18 HISTORY: Elevated liver enzymes. COMPARISON: None. TECHNIQUE: Real time armas scale and color evaluation of the right upper quadrant of the abdomen was performed. The visualized portions of the pancreas are unremarkable. Diffuse increased hepatic echotexture. The gallbladder is normal without cholelithiasis. Gallbladder wall thickness is normal. Negative sonograp hic Awan's sign. Common bile duct measures 2 mm. Right kidney measures 11.1 x 6 x 4.5 cm without mass, hydronephrosis or abnormal calcifications. IMPRESSION: Diffuse increased hepatic echotexture suggesting hepatic steatosis. POS: [facility]
[2018-02-13] MEDS: Simvastatin 20 MG TAB PO SCH (21:00)
[2018-02-14 05:52] LABS: #Basophils 0.1 thou/uL (0.0-0.2); #Eosinphils 0.3 thou/uL (0.0-0.7); #Lymphocytes 2.2 thou/uL (1.20-3.40); #Monocytes 1.1 thou/uL (0.11-0.59); #Neutrophils 5.6 thou/uL (1.40-6.50); %Basophils 0.7 % (0.0-1.0); %Eosinophils 3.5 % (0.0-10.0); %Lymphocytes 23.8 % (21.0-51.0); %Monocytes 12.2 % (0.0-10.0); %Neutrophils 59.8 % (42.0-75.0); Hemoglobin 14.9 g/dL (12.0-16.0); Mean Corpuscular HGB CONC 33.8 g/dL (32.0-36.0); Mean Corpuscular Hemoglobin 35.1 pg (27.0-31.0); Mean Platelet Volume 9.2 fL (7.4-10.4); Platelet Count 240 thou/uL (130-400); RBC Distribution Width 14.3 % (11.5-14.5); Red Blood Cell (RBC) Count 4.26 mill/uL (4.20-5.40); White Blood Cell (WBC) Count 9.3 thou/uL (4.8-10.8)
[2018-02-14] MEDS: Cipro 250 MG TAB PO SCH (05:58)
--- NOTE | 2018-02-14 06:03 | PDOC.FM ---
- Subjective Subjective: Pt feeling well this AM. Last night pt had a coughing episode which exacerbated her underlying baseline chest pain, she denied SOB but said that the pain felt slightly different than before. Pain has since resolved and pt feels much better now. No complaints at this time ROS: no fever no chills, cp (resolving) no palpitations, no sob no cough, no n/v - Objective MAR Reviewed: Yes Vital Signs & Weight: Vital Signs (12 hours) Temp Pulse Resp BP BP Pulse Ox 02/14/18 03:28 98 F 78 14 98/56 L 97 02/13/18 20:00 98.4 F 84 20 96 02/13/18 19:40 98.4 F 84 20 118/59 L 96 Weight Weight 93.894 kg I&O: 02/12/18 02/13/18 02/14/18 06:59 06:59 06:59 Intake Total 240 2050 920 Output Total 3750 1500 975 Balance -3510 550 -55 Result Diagrams: 02/14/18 04:43 02/14/18 04:43 Phys Exam - Physical Examination Constitutional: NAD HEENT: moist MMs, sclera anicteric Respiratory: no wheezing, clear to auscultation bilateral Cardiovascular: RRR, no significant murmur Gastrointestinal: soft, non-tender Neurological: normal sensation, moves all 4 limbs Psychiatric: normal affect Skin: no rash, normal turgor Dx/Plan (1) NSTEMI (non-ST elevated myocardial infarction) Code(s): I21.4 - NON-ST ELEVATION (NSTEMI) MYOCARDIAL INFARCTION Status: Acute (2) Rhabdomyolysis Code(s): M62.82 - RHABDOMYOLYSIS Status: Acute (3) Methamphetamine abuse Code(s): F15.10 - OTHER STIMULANT ABUSE, UNCOMPLICATED Status: Acute (4) UTI (urinary tract infection) Status: Acute - Plan Plan: 32 yo F with h/o of former multi-drug abuse with NSTEMI, Rhabdomyolysis, and UTI. NSTEMI, Takotsubo Cardiomyopathy A- likely 2/2 to methamphetamine use. troponins 0.7 -> 0.6 -> 0.385, cardiology consulted (Dr. Velez), Cath negative, Takotsubo cardiomyopathy dx. P- Send home today with Cards recommended meds: coreg and lasix -pt cannot afford life vest Congestive Heart Failure A- EF of 15% noted on echo, due to NSTEMI/cardiomyopathy P- coreg and lasix per cardiology recs, No ACEi because of pt BP too low Elevated Liver Enzymes A- AST and ALT 111 and 151 today, were higher on presentation. HepC negative, Possibly due to hypoperfusion due to heart disease. RUQ echo yesterday just showed hepatic steatosis. P- continue to trend labs and investigate outpt -diet counseling -f/u on hepB panel Volume Overload -resolved Rhabomyolysis A- CK 1197 and downtrending. P- PO hydration UTI, uncomplicated - UCx showed E. Coli, sensitive to cipro -Ciprofloxacin 250mg BID for 5 days, started 02/09 Amphetamine abuse -positive UDS -MD aware Episodic hot flashes, palpitations, blurry vision -TSH normal, likely due to drug abuse
[2018-02-14 06:14] LABS: ALT (SGPT) 170 U/L (8-55); AST (SGOT) 131 U/L (5-34); Albumin 3.5 g/dL (3.5-5.0); Alkaline Phosphatase 105 U/L (40-150); Anion Gap 12 mmol/L (10-20); BUN (Urea Nitrogen) 10 mg/dL (7.0-18.7); Bilirubin, Total 0.5 mg/dL (0.2-1.2); CK (CPK) 500 U/L (29-168); Calc. Creatinine Clearance 162 mL/min (70-130); Calcium 9.4 mg/dL (7.8-10.44); Carbon Dioxide 22 mmol/L (22-29); Chloride 106 mmol/L (98-107); Estimated GFR-MDRD Greater than 90; Globulin 3.3 g/dL (2.4-3.5); Glucose 89 mg/dL (70-105); Potassium 3.8 mmol/L (3.5-5.1); Protein, Total 6.8 g/dL (6.0-8.3); Sodium 136 mmol/L (136-145)
[2018-02-14] MEDS: Aspirin 81 mg Enteric Coated Tablet PO SCH (08:27)
[2018-02-14] MEDS: Carvedilol 3.125 MG TAB PO SCH (08:27)
[2018-02-14] MEDS: Furosemide 20 MG TAB PO SCH (08:28)
--- NOTE | 2018-02-14 13:11 | DIS-2 ---
DATE OF ADMISSION: 02/09/2018 DATE OF DISCHARGE: 02/14/2018 RESIDENT: Rene Addison M.D. ADMITTING ATTENDING: Royce Cruz M.D. DISCHARGE ATTENDING: Carlos A Winchester M.D. CONSULTATIONS: Cardiology, Dr. Angelo Velez PROCEDURES: 1. Chest and thorax CT on 02/09/2018: Impression: No evidence of pulmonary artery embolism to the level of segmental arteries. 2. SPECT scan inflammatory process on 02/10/2018: Impression, findings consistent with anterior wall scar. 3. On 02/11/2018 - Chest x-ray. Impression: Increased interstitium of uncertain significance. Suggest follow up PA and lateral views of chest. 4. Abdomen ultrasound on 02/13/2018: Impression; diffuse increased hepatic echotexture suggesting hepatic steatosis. PRIMARY DIAGNOSES: Non-ST elevation myocardial infarction, Takotsubo cardiomyopathy. SECONDARY DIAGNOSES: Methamphetamine abuse, volume overload, rhabdomyolysis. DISCHARGE MEDICATIONS: Acetaminophen 650 mg p.o. q.4. p.r.n., aspirin 81 mg p.o. daily, carvedilol 3.125 mg p.o. b.i.d., ciprofloxacin 250 mg p.o. b.i.d., furosemide 20 mg p.o. daily, acetaminophen with codeine 1 tab p.o. q.6 hours. HPI: 32yo F with hx of multidrug abuse presented with CP to ED [place] [address], UTI on UA, and positive UDS for meth. Dx with NSTEMI after EKG was normal. Echo was done and found to have an EF of 15% per Dr. Velez's note via vocal order to nurse. Cath performed and found minimal pathology. Dx of Takotsubo cardiomyopathy was made in addition to Methamphetamine induced CP. Pt recieved high volume fluids over hospitalization and CK trended down throughout stay. UTI treated with Cipro. Hospital course was further complicated by an episode of fluid overload which was treated with lasix and reduction of IVF while mask was on 15L. Pt eventually weaned down from O2 and was discharged with coreg and lasix per cardiology recs. No ACEi prescribed considering pt BPs were low at time. Pt could not afford life vest was advised to return to ED if symptoms of CP should re-occur. DISPOSITION: stable DISCHARGE INSTRUCTIONS: Location- home, Diet- heathy heart, Activity- as tolerated, Follow up- 1 week with Rene Addison MD, Cardiology in 1-2 weeks, Cardio rehab MTDD
[2018-02-14 13:24] VITALS: BP 96/58; TEMP 97.7
--- NOTE | 2018-02-14 14:08 | PRG ---
DATE OF SERVICE: 02/14/2018 ADDENDUM Ms. Ren is doing well. She is not particularly short of breath. Her right upper quadrant ultras ound did reveal the presence of fatty liver. She has been given instructions in diet and weight loss . Her LFTs and repeat ultrasound need to be followed perhaps in 3 months to make sure that this is i mproving. She will also need a follow up echo in 4-6 weeks. Otherwise, she is ready for discharge o n beta-blockers, aspirin and Lasix.
[2018-02-15 13:19] LABS: Hep B Surface AG-Rflx Sendout Negative (Negative); Hepatitis B Core IgM AB Negative (Negative); Hepatitis B Core Total Negative (Negative); Hepatitis B Surface AB-Sendout Reactive (.)
--- NOTE | 2018-02-15 16:46 | EKG ---
Test Reason : C/O CHEST PAIN Blood Pressure : / mmHG Vent. Rate : 080 BPM Atrial Rate : 080 BPM P-R Int : 120 ms QRS Dur : 092 ms QT Int : 398 ms P-R-T Axes : 052 095 087 degrees QTc Int : 459 ms Normal sinus rhythm with sinus arrhythmia Rightward axis Abnormal ECG Confirmed by АННА LEHMAN ([id number]) on 02/15/2018 4:45:48 PM Referred By: LAURA Confirmed By:АННА LEHMAN
== END 2018-02-14 13:30 | disposition home or self-care (01) | DRG 281 ==
LOC: ERS 10:43 → 2NO 14:47
PROVIDERS: ADMIT Student in an Organized Health Care Education/Training Program; ATTEND Student in an Organized Health Care Education/Training Program
PROC: 4A023N7 Measurement of Cardiac Sampling and Pressure, Left Heart, Percutaneous Approach (ICD-10-PCS; principal; 2018-02-12)
PROC: B2111ZZ Fluoroscopy of Multiple Coronary Arteries using Low Osmolar Contrast (ICD-10-PCS; 2018-02-12)
PROC: B2151ZZ Fluoroscopy of Left Heart using Low Osmolar Contrast (ICD-10-PCS; 2018-02-12)
DX: I21.4 Non-ST elevation (NSTEMI) myocardial infarction (principal); M62.82 Rhabdomyolysis; N39.0 Urinary tract infection, site not specified; I51.81 Takotsubo syndrome; F41.9 Anxiety disorder, unspecified; Z88.0 Allergy status to penicillin; Z88.2 Allergy status to sulfonamides; Z79.82 Long term (current) use of aspirin; F15.10 Other stimulant abuse, uncomplicated; K76.0 Fatty (change of) liver, not elsewhere classified; F17.210 Nicotine dependence, cigarettes, uncomplicated; E66.9 Obesity, unspecified; Z68.32 Body mass index [BMI] 32.0-32.9, adult; E78.00 Pure hypercholesterolemia, unspecified; E87.70 Fluid overload, unspecified
CPT/HCPCS: 36415; 71045; 71275; 76705; 78451; 80053; 80061; 80306; 81001; 81003; 81015; 81025; 82550; 82805; 84439; 84443; 84481; 85025; 85347; 86704; 86705; 86706; 86707; 86780; 86803; 87077; 87086; 87186; 87340; 87350; 87389; 93005; 93010; 93306; 93458; 93798; 94640; 99152; A4353; A9500; C1769; J1644; J1650; J1940; J2250; J2270; J2720; J3010; J7120; J7620